=== PATIENT | male | born 2000 | race Caucasian/White ===

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

== ENCOUNTER 2022-01-08 14:51 | Emergency (ER) | payer OTHER ==
[~2022-01-08] VITALS: Ht 175.3 cm; Wt 86.2 kg
--- NOTE | 2022-01-08 14:54 | NUR ---
PT AMBULATED TO BED 1 WITH EVEN AND STEADY GAIT.
--- NOTE | 2022-01-08 14:54 | NUR ---
Patient ambulated to bed 1 with his family.
[2022-01-08 14:57] VITALS: BP 117/72
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
--- NOTE | 2022-01-08 15:07 | NUR ---
DR. CARLOS BEDSIDE EVALUATING PT
[2022-01-08 15:26] VITALS: BP 117/72
--- NOTE | 2022-01-08 15:26 | NUR ---
Patient discharged with v/s stable. Written and verbal after care instructions given and explained. Patient verbalized understanding. Ambulatory with steady gait. All questions addressed prior to discharge. Advised to follow up with PMD.
== END 2022-01-08 15:26 | disposition home or self-care (01) ==
LOC: MED 14:51
DX: N48.89 Other specified disorders of penis (principal)
CPT/HCPCS: 99281; 99283